=== PATIENT | male | born 1995 | race Caucasian/White ===

== ENCOUNTER → 2024-08-17 12:45 | Outpatient (REF) | payer OTHER, SELFPAY | LOC: RAD 12:45 | PROVIDERS: ATTENDING PHYSICIAN Physician Assistant | DX: S89.92XA Unspecified injury of left lower leg, initial encounter (principal) | CPT/HCPCS: 73564 ==

== ENCOUNTER 2024-10-10 12:06 | Emergency (ER) | payer OTHER, SELFPAY ==
[2024-10-10 12:12] VITALS: BP 142/100
--- NOTE | 2024-10-10 13:15 | ED.GENMED ---
History of Present Illness
General
Chief Complaint: Musculo-Skeletal Complaint
Source: patient
Exam Limitations: none
Time Seen by Provider: 10/10/24 12:47
Nursing documentation reviewed up to this point in time: agreed with
History of Present Illness
History of Present Illness:
29-year-old male presenting to the emergency department today with concerns of left knee injury after slip and fall. Ongoing pain to the knee did have some discomfort above the left patella a previous injury. Has been able to ambulate denies
additional injuries denies numbness or weakness.
Past History
Past History
ED Past Medical History: Asthma
ED Past Surgical History: Orthopedic
Patient has exhibited threatening behavior?: No
PSI?: No
Social History
Tobacco: Former smoker
Drug: Marijuana
Personal: Single
Review of Systems
Review of Systems
Allergies reviewed?: Yes
All Other Systems: ROS reviewed and negative except as documented in HPI and ROS
Phy Exam
Physical Exam
Physical Exam:
GENERAL: Alert , in no apparent distress
EYE: pupils equal and reactive
NECK: Supple, no significant adenopathy.
ENT: o/p clr, mmm.
CARDIAC: Regular rate and rhythm .
LUNGS: Clear breath sounds bilaterally, no acute respiratory distress, no wheezes/rales/rhonchi
ABDOMEN: Soft, without focal tenderness, no r/g, no cvat
NEUROLOGICAL: Alert and oriented, no focal neuro deficits
SKIN: Warm and dry, skin intact.
MUSCULOSKELETAL: No joint laxity good range of motion tenderness mainly to the suprapatellar tendon region able to straight leg raise no edema, well perfused.
PSYCH: Normal and appropriate interaction.
Course
Orders/Labs/Results
Orders:
Orders
10/10/24 12:15
CR Knee - Left 4 Or More View* Urgent
Comment:
Reason For Exam: fall, pain
10/10/24 13:10
Minh Wrap Left-Treatment ONCE
Vital Signs
Initial and Last Documented VS:
Initial Vital Signs
Temp Pulse Resp BP Pulse Ox
99.4 F 110 16 142/100 99
10/10/24 12:12 10/10/24 12:12 10/10/24 12:12 10/10/24 12:12 10/10/24 12:12
Last Documented Vital Signs
Temp Pulse Resp BP Pulse Ox
99.4 F 110 16 142/100 99
10/10/24 12:12 10/10/24 12:12 10/10/24 12:12 10/10/24 12:12 10/10/24 12:12
MDM/Problems Addressed
MDM/Problems Addressed:
29-year-old male presenting to the emergency department today with concerns of left-sided knee discomfort after twisting his leg while slipping on ice this morning. Some discomfort with walking. In no distress here no deformity good range of
motion strength no joint laxity patient does have some tenderness to the suprapatellar tendon. Potential sprain to the area. Advised for close follow-up with Ortho. Return precautions given.
*Critical Care Note
Total Time (30-74mins, 75-104mins- exclusive of procedures): Not Applicable
ED Attending Note
-
Portions of this chart may have been created with voice recognition software.� Occasional wrong word or��sound alike� substitutions may have occurred due to the inherent limitations of voice recognition software.
Discharge Plan
Departure
Patient Disposition: Home (Routine Discharge)
Date of Disposition: 10/10/24
Time of Disposition: 13:16
Patient with high blood pressure during this ER visit?: No
Condition: Good
Covid-19: Not Applicable
Discharge Problem:
Sprain of knee
Instructions: Knee Sprain (DC)
Prescriptions:
No Action
fluticasone propionate [Flonase Allergy Relief] 50 mcg/actuation [place],Suspension
1 spray INTRANASAL DAILY
fluticasone propion-salmeterol [Advair Diskus] 250-50 mcg/dose Blister With Device
1 inh INHALATION DAILY
prednisone 10 mg tablet
10 mg PO DAILY 20 Days Qty: 30 0RF
Rx Instructions:
20 mg PO daily x 10 days then 10 mg PO daily x 10 days then d/c, start tomorrow
acetaminophen-codeine [acetaminophen-codeine] 300-30 mg tablet
1 - 2 tab PO Q4HPRN PRN (Reason: Mod-severe pain) Qty: 30 0RF
doxycycline hyclate 100 mg capsule
100 mg PO BID 10 Days Qty: 20 0RF
Referrals:
Jamey Mckeon MD [Active] - Follow up in 5-7 days
Jacqui Burns DO [Family Provider] -
Activity Restrictions/Additional Instructions:
You came to the emergency department today after knee injury. Here your reassuring assessment. Please follow closely with Ortho. Return for any worsening, new or concerning symptoms.
Interventions
Interventions:
*Risk Screen - Suicide Last Done: 10/10/24 12:12
*General Assessment Last Done: 10/10/24 12:12
*Neglect/Abuse Screening Last Done: 10/10/24 12:12
*ED COVID-19 Vaccine History Last Done: 10/10/24 12:12
ED-Musculoskeletal Assessment Last Done: 10/10/24 12:55
Discharge Date and Time
Print Language: OMANI
== END 2024-10-10 13:37 | disposition home or self-care (01) ==
LOC: EMR 12:06
PROVIDERS: EMERGENCY PHYSICIAN Emergency Medicine; FAMILY PHYSICIAN Family Medicine
DX: S83.92XA Sprain of unspecified site of left knee, initial encounter (principal); W00.0XXA Fall on same level due to ice and snow, initial encounter; J45.909 Unspecified asthma, uncomplicated; Z87.891 Personal history of nicotine dependence
CPT/HCPCS: 99283; 73564

== ENCOUNTER 2024-11-02 12:09 | Emergency (ER) | payer OTHER, SELFPAY ==
[2024-11-02 12:11] VITALS: BP 185/89
--- NOTE | 2024-11-02 12:54 | ED.GENMED ---
History of Present Illness
General
Chief Complaint: Heart Rate Problem
Source: patient
Exam Limitations: none
Time Seen by Provider: 11/02/24 12:49
History of Present Illness
History of Present Illness:
See MDM
Past History
Past History
ED Past Medical History: Asthma
ED Past Surgical History: Orthopedic
Patient has exhibited threatening behavior?: No
PSI?: No
Social History
Tobacco: Former smoker
Drug: Marijuana
Personal: Single
Phy Exam
Physical Exam
Physical Exam:
See MDM
Course
Orders/Labs/Results
Orders:
Orders
11/02/24 12:10
EKG [Electrocardiogram (*1)] Urgent
Reason for Study: Palpitations
EKG- Treatment ONCE
11/02/24 12:59
Complete Blood Count/With Diff Urgent
Comprehensive Metabolic Panel Urgent
Magnesium Urgent
TSH Reflex To Free T4 Urgent
Abnormal Lab Results
11/02/24
12:59
MCH 32.2 H pg
(27.0-31.0)
Monocytes % 9.4 H %
(1.7-9.3)
11/02/24 12:59
11/02/24 12:59
Vital Signs
Initial and Last Documented VS:
Initial Vital Signs
Temp Pulse Resp BP Pulse Ox
98.2 F 78 20 185/89 99
11/02/24 12:11 11/02/24 12:11 11/02/24 12:11 11/02/24 12:11 11/02/24 12:11
Last Documented Vital Signs
Temp Pulse Resp BP Pulse Ox
98.2 F 70 20 123/72 98
11/02/24 12:11 11/02/24 14:15 11/02/24 14:15 11/02/24 14:15 11/02/24 14:15
MDM/Problems Addressed
Differential Diagnosis Includes:
HPI and MDM Narrative:
29-year-old male presenting for evaluation of palpitations. Patient states it has been an ongoing issue over the past week. He initially thought it could be caffeine related. He denies any increased caffeine but stopped her caffeine intake over
the past week. Patient states symptoms got really bad yesterday when he was driving. He felt palpitations and then he noted that both of his hands were getting numb. He did go to an outside hospital but ended up leaving without evaluation.
Patient states symptoms started to recur today so he came to the hospital. Patient does acknowledge that symptoms have improved. EKG done in triage is a sinus rhythm. I do long conversation with patient indicating possibility of cardiac
arrhythmia that would require outpatient Holter monitor. Patient does acknowledge. The meantime, will obtain basic blood work which includes electrolytes and thyroid testing
Physical exam
General: Well appearing and non-toxic
HEENT: protecting airway
Neck: appears supple
CV: No evidence of cyanosis. Regular rate and rhythm
Resp: No accessory muscle use
Abd: Non-distended
Extremities: No deformities. No leg edema or unilateral tenderness
Neuro: alert
Psych: Normal affect
Skin: Intact
Problems Addressed including Acute and Chronic Conditions affecting care:
1. Palpitations
Acuity: acute
Prognosis: stable
Details: Patient currently in sinus rhythm. Will obtain basic blood work but otherwise discussed outpatient follow-up for Holter monitor
Updates
Electrolytes and thyroid level within normal limits. Patient has remained in a sinus rhythm on the monitor. Discussed outpatient follow-up with PCP to discuss Holter monitor
Differential Diagnosis (but not limited to): SVT, PVCs, A-fib
Testing considered: Troponin but denies chest pain or shortness of breath
Drug therapy (if applicable): OTC meds, please see d/c instruction regarding Rx drugs
Amount and/or Complexity of Data Reviewed
Clinical info obtained from: Patient
External data reviewed: N/A
Labs I independently reviewed (but not limited to): 12 thyroid levels within normal limits
Radiology: N/A
Pulse Ox: not hypoxic
EKG independently reviewed: Sinus rhythm, normal axis, no STEMI
Radiographer Angiogram: Sinus rhythm
Critical Care: N/A
Risk of Complication:
Social Determinants of health: Good social support
Discussed with other providers: N/A
Escalation of Care includes Admit/Obs: After being observed in the Emergency Department, pt stable for discharge.
Occasional wrong word or 'sound a like' substitutions may have occurred due to the inherent limitations of voice recognition software. Read the chart carefully and recognize, using context, where substitutions have occurred.
*Critical Care Note
Total Time (30-74mins, 75-104mins- exclusive of procedures): Not Applicable
ED Attending Note
-
Portions of this chart may have been created with voice recognition software.� Occasional wrong word or��sound alike� substitutions may have occurred due to the inherent limitations of voice recognition software.
Discharge Plan
Departure
Patient Disposition: Home (Routine Discharge)
Date of Disposition: 11/02/24
Time of Disposition: 14:41
Patient with high blood pressure during this ER visit?: No
Discharge Problem:
Palpitations
Instructions: Palpitations (DC)
Prescriptions:
No Action
fluticasone propionate [Flonase Allergy Relief] 50 mcg/actuation [place],Suspension
1 spray INTRANASAL DAILY
fluticasone propion-salmeterol [Advair Diskus] 250-50 mcg/dose Blister With Device
1 inh INHALATION DAILY
prednisone 10 mg tablet
10 mg PO DAILY 20 Days Qty: 30 0RF
Rx Instructions:
20 mg PO daily x 10 days then 10 mg PO daily x 10 days then d/c, start tomorrow
acetaminophen-codeine [acetaminophen-codeine] 300-30 mg tablet
1 - 2 tab PO Q4HPRN PRN (Reason: Mod-severe pain) Qty: 30 0RF
doxycycline hyclate 100 mg capsule
100 mg PO BID 10 Days Qty: 20 0RF
Referrals:
Masoud Goff MD [Family Provider] -
Activity Restrictions/Additional Instructions:
Please return for any worsening symptoms.
You may return at any time if you have further concerns.
Please follow up with your doctor at the first available appointment, preferably this week. Please discuss getting a Holter monitor to further evaluate your symptoms.
Thank you for choosing [facility].
Interventions
Interventions:
*General Assessment Last Done: 11/02/24 12:11
ED- Cardiac Assessment Last Done: 11/02/24 12:57
ED- Pulmonary Assessment Last Done: 11/02/24 12:57
Discharge Date and Time
Print Language: [place]ET[place]ESE
[2024-11-02 12:57] VITALS: BMI 20.4
[2024-11-02 13:08] LABS: % Basophils 1.3 % (0-2); % Eosinophils 0.8 % (0-6); % Immature Granulocytes 0.4 % (0-0.5); % Lymphocytes 23.3 % (20.5-51.1); % Monocytes 9.4 % (1.7-9.3); % Neutrophils 64.8 % (42.2-75.2); Absolute Basophils 0.1 10^3/uL (0-0.2); Absolute Lymphocytes 1.2 10^3/uL (1.2-3.4); Absolute Monocytes 0.5 10^3/uL (0.1-0.6); Absolute Neutrophils 3.5 10^3/uL (1.4-6.5); Hemoglobin 15.6 g/dL (13.0-18.0); Mean Corp Hgb Conc. 34.7 g/dL (33.0-37.0); Mean Corpuscular Hgb 32.2 pg (27.0-31.0); Mean Platelet Volume 9.9 fL (7.4-10.4); Nucleated Red Blood Cells % 0 % (-); Platelet Count 241 10^3/uL (130-400); Red Blood Cell Count 4.84 10^6/uL (4.70-6.10); Red Cell Dist. Width 12.4 % (11.5-14.5); White Blood Cell Count 5.3 10^3/uL (4.8-10.8)
[2024-11-02 13:26] LABS: ALT (SGPT) 33 U/L (0-50); AST (SGOT) 38 U/L (17-59); Albumin 4.9 g/dl (3.5-5.0); Alkaline Phosphatase 60 U/L (38-126); Blood Urea Nitrogen 12 mg/dl (9-20); Calcium 9.9 mg/dl (8.4-10.2); Carbon Dioxide 28 mmol/L (22-30); Chloride 99 mmol/L (98-107); Estimated Creatinine Clearance 120 ml/min; Glucose 89 mg/dl (70-99); Potassium 4.5 mmol/L (3.5-5.1); Sodium 135 mmol/L (135-145); Total Bilirubin 1.2 mg/dl (0.2-1.3); Total Protein 7.6 g/dl (6.3-8.2); eGFR > 60.00
[2024-11-02 14:15] VITALS: BP 123/72
== END 2024-11-02 14:49 | disposition home or self-care (01) ==
LOC: EMR 12:09
PROVIDERS: EMERGENCY PHYSICIAN Student in an Organized Health Care Education/Training Program; FAMILY PHYSICIAN Family Medicine
DX: R00.2 Palpitations (principal); J45.909 Unspecified asthma, uncomplicated; Z87.891 Personal history of nicotine dependence
CPT/HCPCS: 99284; 80053; 83735; 84443; 85025; 93005

== ENCOUNTER → 2024-11-28 15:22 | Outpatient (REF) | payer OTHER, SELFPAY | LOC: RAD 15:22 | PROVIDERS: ATTENDING PHYSICIAN Physician Assistant | DX: R10.30 Lower abdominal pain, unspecified (principal) | CPT/HCPCS: 76700 ==

== ENCOUNTER 2024-12-16 16:24 | Emergency (ER) | payer OTHER, SELFPAY ==
[2024-12-16 16:26] VITALS: BP 168/104
--- NOTE | 2024-12-16 17:15 | ED.GENMED ---
History of Present Illness
General
Chief Complaint: Numbness
Source: patient
Exam Limitations: none
Time Seen by Provider: 12/16/24 17:05
Nursing documentation reviewed up to this point in time: agreed with
History of Present Illness
History of Present Illness:
29-year-old male with a past medical history of asthma presents emergency department today with concerns of genital paresthesias for the past few hours. Patient reports that he was drinking a cup of coffee earlier when he suddenly noticed that he
had numbness and tingling around his testicles as well as the anal area. He also notes some pain in that area as well. Of note, patient notes that this all started multiple weeks ago with low back pain. Patient reports that the low back pain
started to wrap around to the front and now he has pelvic pressure as well. He denies any dysuria, denies any penile discharge, denies any new sexual partners. He denies any fevers or chills. Patient also reports that he has been constipated past
few days he states he has a lot of difficulty having a bowel movement. Patient also notes that today, he also developed numbness in his bilateral thighs. Denies any difficulty walking. He denies any urinary or fecal incontinence. Patient states
that he saw his primary care provider for upper abdominal pain he is having thinks ago but never seen anyone for this low back pain and neurologic complaints.
Past History
Past History
ED Past Medical History: Asthma
ED Past Surgical History: Orthopedic
Patient has exhibited threatening behavior?: No
PSI?: No
Social History
Tobacco: Former smoker
Drug: Marijuana
Personal: Single
Review of Systems
Review of Systems
All Other Systems: ROS reviewed and negative except as documented in HPI and ROS
Phy Exam
Physical Exam
Physical Exam:
General: Patient is well appearing and in no acute distress; non-toxic
Skin: Warm and dry, no rashes or lesions
Head: Normocephalic, atraumatic
Eyes: Sclera non-icteric. EOMs intact.
Cardiac: Regular rate and rhythm, no murmurs
Peripheral Vascular: No lower extremity swelling or edema
Pulm: Normal respiratory effort, no wheezes, rales, rhonchi
Abdomen: Right lower quadrant abdominal tenderness to palpation with guarding, no palpable abdominal masses
Musculoskeletal: No tenderness to palpation of the bilateral lower extremities, no palpable bony deformitues
Neuro: CN II-XII intact, no focal neurologic deficits. 5 of 5 strength bilateral lower extremities, 2+ lower extremity DTRs, normal gait
Psychiatric: Appropriate mood and affect.
Course
Orders/Labs/Results
Orders:
Orders
12/16/24 18:02
MR Lumbar Without Contrast Urgent
Comment:
Reason For Exam: low back pain, genital paresthesias, constipation
Recent pill cam endoscopy?: No
12/16/24 18:03
CT Abd/pelvis W Iv Cont Urgent
Comment:
Reason For Exam: RLQ pain
12/16/24 18:13
Complete Blood Count/With Diff Urgent
Comprehensive Metabolic Panel Urgent
Lipase Urgent
Urinalysis Reflex To Culture Urgent
Date Specimen was Collected: 12/16/24
Time Specimen was Collected: 18:06
Abnormal Lab Results
12/16/24
18:13
MCH 32.9 H pg
(27.0-31.0)
Absolute Lymphs (auto) 1.1 L 10^3/uL
(1.2-3.4)
Lymphocytes % 17.3 L %
(20.5-51.1)
BUN 5 L mg/dl
(9-20)
Urine Ketones 2+ A
(Negative)
12/16/24 18:13
12/16/24 18:13
Vital Signs
Initial and Last Documented VS:
Initial Vital Signs
Temp Pulse Resp BP Pulse Ox
98.8 F 100 20 168/104 100
04/20/25 16:26 12/16/24 16:26 12/16/24 16:26 12/16/24 16:26 12/16/24 16:26
Last Documented Vital Signs
Temp Pulse Resp BP Pulse Ox
98.8 F 100 16 143/91 98
12/16/24 16:26 12/16/24 16:26 12/16/24 18:00 12/16/24 21:00 12/16/24 21:15
MDM/Problems Addressed
Differential Diagnosis Includes:
Differentials include cauda equina syndrome, lumbar disc herniation, urinary tract infection, STD, STI, gastroenteritis, gastritis,
MDM/Problems Addressed:
29-year-old male with a past medical history of asthma presents emergency department today with concerns of genital paresthesias for the past few hours. Patient reports that he was drinking a cup of coffee earlier when he suddenly noticed that he
had numbness and tingling around his testicles as well as the anal area. He also notes some pain in that area as well. Of note, patient notes that this all started multiple weeks ago with low back pain. Concern for cauda equina syndrome. MRI of
the lumbar spine was obtained which does show moderate disc herniation L4-L5 and some minimal herniation of L5-S1 but no evidence of cauda equina syndrome. In light of patient's abdominal tenderness on exam, patient also received an ultrasound
abdomen pelvis which showed no acute inflammatory process within the abdomen and pelvis within normal appendix. Suspect the constellation of patient's symptoms related to lumbar disc herniation. There is no evidence of UTI on urinalysis. Patient
does not currently have testicular pain. However he feels back pain in the paresthesias. Will start on course of prednisone, patient stable for discharge
Chronic conditions affecting care:
asthma
*Pulse Oximetry
Patient hypoxic: no
*Critical Care Note
Total Time (30-74mins, 75-104mins- exclusive of procedures): Not Applicable
Data Reviewed
Review of Other/Old Records Reveals: Records (Reviewed ER physician mentation from 11/02/2024 patient seen for evaluation of palpitations, was discharged with unremarkable work) and Discharge Summary (No discharge summary [employer] to review)
Source: patient and records
Patient Management
Escalation/DeEscalation of care consider admission/obs:
admit not indicated, patient stable for discharge
ED Attending Note
-
Portions of this chart may have been created with voice recognition software.� Occasional wrong word or��sound alike� substitutions may have occurred due to the inherent limitations of voice recognition software.
Discharge Plan
Departure
Patient Disposition: Home (Routine Discharge)
Date of Disposition: 12/16/24
Time of Disposition: 21:13
Patient with high blood pressure during this ER visit?: Yes
Condition: Good
Discharge Problem:
Acute lumbar radiculopathy
Instructions: Herniated Disc (DC), Radiculopathy of the neck and back (including sciatica), BLOOD PRESSURE
Prescriptions:
New
prednisone 20 mg tablet
40 mg PO DAILY 5 Days Qty: 10 0RF
No Action
fluticasone propionate [Flonase Allergy Relief] 50 mcg/actuation [place],Suspension
1 spray INTRANASAL DAILY
fluticasone propion-salmeterol [Advair Diskus] 250-50 mcg/dose Blister With Device
1 inh INHALATION DAILY
prednisone 10 mg tablet
10 mg PO DAILY 20 Days Qty: 30 0RF
Rx Instructions:
20 mg PO daily x 10 days then 10 mg PO daily x 10 days then d/c, start tomorrow
acetaminophen-codeine [acetaminophen-codeine] 300-30 mg tablet
1 - 2 tab PO Q4HPRN PRN (Reason: Mod-severe pain) Qty: 30 0RF
doxycycline hyclate 100 mg capsule
100 mg PO BID 10 Days Qty: 20 0RF
Referrals:
Jeet Wiley PA [Family Provider] -
Activity Restrictions/Additional Instructions:
Prednisone has been sent to pharmacy. You can take 40 mg daily for 5 days.
Please follow-up with your primary care provider and follow-up with the orthopedist.
PLEASE RETURN EMERGENCY DEPARTMENT SHOULD YOU DEVELOP ACUTE WORSENING OR SYMPTOMS, URINARY OR FECAL INCONTINENCE, FEVERS OR CHILLS, INABILITY AMBULATE, OR ANY OTHER SIGNS OR SYMPTOMS WORRISOME TO YOU.
Interventions
Interventions:
*Risk Screen - Suicide Last Done: 12/16/24 17:47
*General Assessment Last Done: 12/16/24 17:47
*Neglect/Abuse Screening Last Done: 12/16/24 18:18
*ED- Fall Risk Assessment Last Done: 12/16/24 17:47
*Nursing Disposition Last Done: 12/16/24 21:25
ED- Neurological Assessment Last Done: 12/16/24 18:16
Discharge Date and Time
Discharge Date/Time: 12/16/24 21:25
Print Language: JAPANESE
[2024-12-16 18:18] VITALS: BMI 19.9
[2024-12-16 18:20] LABS: % Basophils 0.6 % (0-2); % Eosinophils 0.3 % (0-6); % Immature Granulocytes 0.2 % (0-0.5); % Lymphocytes 17.3 % (20.5-51.1); % Monocytes 6.5 % (1.7-9.3); % Neutrophils 75.1 % (42.2-75.2); Absolute Lymphocytes 1.1 10^3/uL (1.2-3.4); Absolute Monocytes 0.4 10^3/uL (0.1-0.6); Absolute Neutrophils 4.9 10^3/uL (1.4-6.5); Hematocrit 43.9 % (39.0-52.0); Hemoglobin 15.6 g/dL (13.0-18.0); Mean Corp Hgb Conc. 35.5 g/dL (33.0-37.0); Mean Corpuscular Hgb 32.9 pg (27.0-31.0); Mean Corpuscular Volume 92.6 fL (80.0-94.0); Mean Platelet Volume 9.3 fL (7.4-10.4); Nucleated Red Blood Cells % 0 % (-); Platelet Count 214 10^3/uL (130-400); Red Blood Cell Count 4.74 10^6/uL (4.70-6.10); Red Cell Dist. Width 12.4 % (11.5-14.5); White Blood Cell Count 6.6 10^3/uL (4.8-10.8)
[2024-12-16 19:06] LABS: ALT (SGPT) 27 U/L (0-50); AST (SGOT) 31 U/L (17-59); Albumin 4.7 g/dl (3.5-5.0); Alkaline Phosphatase 76 U/L (38-126); Blood Urea Nitrogen 5 mg/dl (9-20); Carbon Dioxide 27 mmol/L (22-30); Chloride 102 mmol/L (98-107); Estimated Creatinine Clearance > 125 ml/min; Glucose 88 mg/dl (70-99); Lipase 154 U/L (23-300); Potassium 4.3 mmol/L (3.5-5.1); Sodium 138 mmol/L (135-145); Total Bilirubin 1.1 mg/dl (0.2-1.3); Total Protein 7.4 g/dl (6.3-8.2); eGFR > 60.00
[2024-12-16 19:11] LABS: Urine Albumin Negative (Neg - Trace); Urine Bilirubin Negative (Negative); Urine Character Clear (Clear); Urine Color Yellow; Urine Glucose Negative (Negative); Urine Ketone 2+ (Negative); Urine Leukocyte Negative (Negative); Urine Nitrite Negative (Negative); Urine Occult Blood Negative (Negative); Urine Urobilinogen Negative (Neg - 1+)
[2024-12-16 20:41] VITALS: BP 136/89
[2024-12-16 21:00] VITALS: BP 143/91
== END 2024-12-16 21:25 | disposition home or self-care (01) ==
LOC: EMR 16:24
PROVIDERS: Physician Assistant; EMERGENCY PHYSICIAN Emergency Medicine; FAMILY PHYSICIAN Physician Assistant
DX: M51.16 Intervertebral disc disorders with radiculopathy, lumbar region (principal); J45.909 Unspecified asthma, uncomplicated; Z87.891 Personal history of nicotine dependence
CPT/HCPCS: 99284; 72148; 74177; 80053; 81003; 83690; 85025; Q9967

== ENCOUNTER 2025-01-08 13:31 | Emergency (ER) | payer OTHER, SELFPAY ==
[2025-01-08 13:41] VITALS: BP 162/91
[2025-01-08 13:59] LABS: % Basophils 0.7 % (0-2); % Eosinophils 0.3 % (0-6); % Immature Granulocytes 0.3 % (0-0.5); % Lymphocytes 17.4 % (20.5-51.1); % Monocytes 8.2 % (1.7-9.3); % Neutrophils 73.1 % (42.2-75.2); Absolute Monocytes 0.5 10^3/uL (0.1-0.6); Absolute Neutrophils 4.4 10^3/uL (1.4-6.5); Hematocrit 43.9 % (39.0-52.0); Hemoglobin 15.1 g/dL (13.0-18.0); Mean Corp Hgb Conc. 34.4 g/dL (33.0-37.0); Mean Corpuscular Hgb 32.7 pg (27.0-31.0); Mean Platelet Volume 9.4 fL (7.4-10.4); Nucleated Red Blood Cells % 0 % (-); Platelet Count 204 10^3/uL (130-400); Red Blood Cell Count 4.62 10^6/uL (4.70-6.10); Red Cell Dist. Width 12.6 % (11.5-14.5)
[2025-01-08 14:14] LABS: ALT (SGPT) 21 U/L (0-50); AST (SGOT) 26 U/L (17-59); Albumin 4.4 g/dl (3.5-5.0); Alkaline Phosphatase 52 U/L (38-126); Blood Urea Nitrogen 12 mg/dl (9-20); Calcium 9.9 mg/dl (8.4-10.2); Carbon Dioxide 30 mmol/L (22-30); Chloride 105 mmol/L (98-107); Glucose 119 mg/dl (70-99); Potassium 4.5 mmol/L (3.5-5.1); Sodium 138 mmol/L (135-145); Total Bilirubin 0.9 mg/dl (0.2-1.3); eGFR > 60.00
--- NOTE | 2025-01-08 17:59 | ED.GENMED ---
History of Present Illness
General
Chief Complaint: Male Genito-Urinary Symptoms
Source: patient
Exam Limitations: none
Time Seen by Provider: 01/08/25 17:36
Nursing documentation reviewed up to this point in time: agreed with
History of Present Illness
History of Present Illness:
Patient is a 29-year-old male presenting to the emergency department with concerns of scrotal pain and dysuria which started today. Patient states that as he was getting in the shower late morning he had some aching in his scrotum. He noticed that
scrotum seem more swollen and red. He then went to the bathroom and reports burning when he peed. He denies any hematuria. He states scrotal pain has seemed to come and go in waves today. He reports mild pain in his lower abdomen.
Patient denies any fevers or vomiting.
Patient states he is not currently sexually active. He was recently tested for STDs in July and was negative.
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 However�he states scrotal redness and swelling are new.
Past History
Past History
ED Past Medical History: Asthma
ED Past Surgical History: Orthopedic
Patient has exhibited threatening behavior?: No
PSI?: No
Social History
Tobacco: Former smoker
Drug: Marijuana
Personal: Single
Review of Systems
Review of Systems
Allergies reviewed?: Yes
All Other Systems: ROS reviewed and negative except as documented in HPI and ROS
Phy Exam
Physical Exam
Physical Exam:
Vitals: Hypertensive, otherwise vital signs stable. Afebrile
General: Patient is well appearing, no acute distress. Nontoxic appearing
Skin: Warm and dry, no rashes or lesions
Head: Normocephalic, atraumatic
Eyes: Sclera nonicteric. EOMs intact. No nystagmus.
Throat: Protecting airway
Neck: Normal ROM, no cervical spine tenderness, no meningismus
Cardiac: Regular rate and rhythm, no murmurs.
Pulm: Normal respiratory effort, no wheezes, rales, rhonchi heard on exam
.
Abdomen: Abdomen soft. Very mild suprapubic tenderness. No rebound tenderness or guarding.
: Mild scrotal erythema and edema with mild diffuse tenderness. No focal tenderness of epididymis or palpable masses. No erythema of the perineal region. No penile discharge.
Extremities: No evidence of cyanosis or edema. Strength 5/5 in upper and lower extremities
Neuro: AAOx3. No focal neurologic deficits. Steady gait. Normal sensation of bilateral upper and lower extremities.
Psychiatric: Normal affect.
Course
Orders/Labs/Results
Orders:
Orders
01/08/25 13:47
Complete Blood Count/With Diff Urgent
Comprehensive Metabolic Panel Urgent
Urinalysis Reflex To Culture Urgent
Date Specimen was Collected: 01/08/25
Time Specimen was Collected: 13:43
Urine Microscopic Reflex Cult Urgent
Chlamydia/GC by PCR Urgent
SUNNY Source: U
Specimen Description:
Date Specimen was Collected: 01/08/25
Time Specimen was Collected: 13:43
Comment: ADD ON
Urine Culture Urgent
SUNNY Source: U
Specimen Description:
Date Specimen was Collected: 01/08/25
Time Specimen was Collected: 13:43
01/08/25 17:58
Scrotum US [US Scrotum] Urgent
Comment:
Reason For Exam: Scrotal pain/swelling
01/08/25 19:00
Ketorolac [Toradol] 15 mg IM NOW STA
01/08/25 20:04
Cephalexin Monohydrate [Keflex] 500 mg PO NOW STA
01/08/25 20:16
Add On- LAB Urgent
Comments:: urine in lab
Tests Added?: chlamydia gc pcr urine
Abnormal Lab Results
01/08/25
13:47
RBC 4.62 L 10^6/uL
(4.70-6.10)
MCV 95.0 H fL
(80.0-94.0)
MCH 32.7 H pg
(27.0-31.0)
Absolute Lymphs (auto) 1.0 L 10^3/uL
(1.2-3.4)
Lymphocytes % 17.4 L %
(20.5-51.1)
Glucose 119 H mg/dl
(70-99)
Urine Ketones 2+ A
(Negative)
Leukocyte Esterase Rfl 1+ A
(Negative)
Urine Bacteria (Reflex) Moderate A
(Negative)
Urine Albumin (Reflex) 1+ A
(Neg - Trace)
01/08/25 13:47
01/08/25 13:47
Vital Signs
Initial and Last Documented VS:
Initial Vital Signs
Pulse Resp Pulse Ox
92 18 99
01/08/25 13:40 01/08/25 13:40 01/08/25 13:40
Last Documented Vital Signs
Temp Pulse Resp BP Pulse Ox
99.1 F 92 18 162/91 99
01/08/25 13:41 01/08/25 13:40 01/08/25 13:40 01/08/25 13:41 01/08/25 13:40
MDM/Problems Addressed
Differential Diagnosis Includes:
Not limited to: UTI, epididymitis, orchitis, GC/chlamydia, cellulitis, testicular torsion, inguinal hernia, etc.
MDM/Problems Addressed:
29-year-old male presenting with somewhat gradual onset scrotal pain and swelling today. He also notes generalized redness of scrotum and mild dysuria. He has chronic lower back herniated disc. Not currently sexually active with no concern for
STDs. Vital stable. Physical exam as above. Basic labs were sent in triage without any clinically significant abnormalities. Will obtain urinalysis and check scrotal ultrasound. Toradol for pain.
Update: Scrotal ultrasound with very small varicocele noted without any other abnormalities. No evidence of testicular torsion. Clinically low suspicion for epidural. Urine with moderate bacteria, otherwise not very suspicious for UTI.
However�will treat for possible mild scrotal cellulitis and cover for possible UTI with Keflex. Recommended urology follow-up outpatient. Referral was given. Will advise close spine follow-up for central herniated disc. No evidence of cauda
equina today. Patient seen with attending physician. Patient comfortable plan is stable for discharge home.
Chronic conditions affecting care:
Central disc herniation of L4/L5
Acute Exacerbation and/or Progression of Chronic Illness:
N/A
*Radiology
Radiology exam reviewed: radiology read reviewed
*Pulse Oximetry
Patient hypoxic: no
*EKG
Interpreted by ED Provider?: NA
*[place] Interpretation
Rate: [place]- N/A
*Critical Care Note
Total Time (30-74mins, 75-104mins- exclusive of procedures): Not Applicable
Data Reviewed
Review of Other/Old Records Reveals: Radiology Studies (MRI of lumbar spine from 12/16/2024 which shows posterior central disc protrusion at level of L4/L5 CT abdomen/pelvis with IV contrast from 12/16/2024 without acute abnormalities-no evidence of
kidney stones at that time; )
Source: previous radiology exam and previous hospital records
Patient Management
Discussion with other providers: Other (Case discussed with attending physician)
ED Attending Note
-
Portions of this chart may have been created with voice recognition software.� Occasional wrong word or��sound alike� substitutions may have occurred due to the inherent limitations of voice recognition software.
Discharge Plan
Departure
Patient Disposition: Home (Routine Discharge)
Date of Disposition: 01/08/25
Time of Disposition: 20:06
Patient with high blood pressure during this ER visit?: Yes
Condition: Good
Covid-19: Not Applicable
Discharge Problem:
Cellulitis, scrotum
Instructions: Urinary tract infection in adults - ED discharge instructions, BLOOD PRESSURE
Prescriptions:
New
cephalexin 500 mg capsule
500 mg PO BID 5 Days Qty: 10 0RF
prednisone 20 mg tablet
40 mg PO DAILY 5 Days Qty: 10 0RF
No Action
fluticasone propionate [Flonase Allergy Relief] 50 mcg/actuation [place],Suspension
1 spray INTRANASAL DAILY
fluticasone propion-salmeterol [Advair Diskus] 250-50 mcg/dose Blister With Device
1 inh INHALATION DAILY
prednisone 10 mg tablet
10 mg PO DAILY 20 Days Qty: 30 0RF
Rx Instructions:
20 mg PO daily x 10 days then 10 mg PO daily x 10 days then d/c, start tomorrow
acetaminophen-codeine [acetaminophen-codeine] 300-30 mg tablet
1 - 2 tab PO Q4HPRN PRN (Reason: Mod-severe pain) Qty: 30 0RF
doxycycline hyclate 100 mg capsule
100 mg PO BID 10 Days Qty: 20 0RF
prednisone 20 mg tablet
40 mg PO DAILY 5 Days Qty: 10 0RF
Referrals:
Jeet Wiley PA [Family Provider] -
Ruslan Sarmiento MD [Active] - Call in 1-3 days for appt
Activity Restrictions/Additional Instructions:
RETURN TO THE EMERGENCY DEPARTMENT WITH ANY HIGH FEVER, SEVERE ABDOMINAL PAIN, SEVERE TESTICULAR PAIN, SIGNIFICANT WORSENING OF REDNESS IN GROIN, NUMBNESS/TINGLING IN GROIN, URINARY/BOWEL INCONTINENCE, OR ANY OTHER CONCERNS
- As discussed�your lab work and urinalysis in the emergency department showed no acute abnormalities. We will send your urine for culture we will contact you if this is positive. Scrotal ultrasound showed no acute abnormalities.
- A prescription for Keflex has been sent to your pharmacy. You should take this twice a day for 5 days to treat a possible cellulitis or infection of your scrotal skin. This will also treat a developing UTI.
- You should contact the MRI department tomorrow to obtain a disc of your most recent MRI. It is very important you follow-up with a spine surgeon for further evaluation/management as you have a known disc herniation at your L4/L5 level.
- Follow-up with primary care, urology, spine surgery for further evaluation/management
Monitor your symptoms closely and return to the emergency department with any acute worsening/new symptoms or any other concerns
Interventions
Interventions:
*Risk Screen - Suicide Last Done: 01/08/25 13:43
*Neglect/Abuse Screening Last Done: 01/08/25 13:43
*Nursing Disposition Last Done: 01/08/25 20:33
ED-Male Genitourinary Assessment Last Done: 01/08/25 19:26
Discharge Date and Time
Discharge Date/Time: 01/08/25 20:33
Print Language: YI
[2025-01-08] MEDS: TORADOL 15 MG IM (19:23)
[2025-01-08 19:27] LABS: Urine Albumin 1+ (Neg - Trace); Urine Bilirubin Negative (Negative); Urine Character Clear (Clear); Urine Color Yellow; Urine Glucose Negative (Negative); Urine Ketone 2+ (Negative); Urine Leukocyte 1+ (Negative); Urine Nitrite Negative (Negative); Urine Occult Blood Negative (Negative); Urine Urobilinogen Negative (Neg - 1+)
[2025-01-08 19:39] LABS: Urine Amorphous Seen; Urine Bacteria Moderate (Negative); Urine Red Blood Cell 0-2 /HPF (0-2); Urine White Cell 0-2 /HPF (0-5)
[2025-01-08] MEDS: KEFLEX 500 MG PO (20:16)
== END 2025-01-08 20:33 | disposition home or self-care (01) ==
LOC: EMR 13:31
PROVIDERS: Emergency Medicine; EMERGENCY PHYSICIAN Emergency Medicine; FAMILY PHYSICIAN Physician Assistant
DX: N49.2 Inflammatory disorders of scrotum (principal); I86.1 Scrotal varices; R03.0 Elevated blood-pressure reading, without diagnosis of hypertension; Z87.891 Personal history of nicotine dependence
CPT/HCPCS: 99285; 96372; 76870; 80053; 81003; 81015; 85025; 87086; 87491; 87591; 93976

== ENCOUNTER 2025-01-28 14:11 | Emergency (ER) | payer OTHER, SELFPAY ==
[2025-01-28 14:17] VITALS: BP 175/106
--- NOTE | 2025-01-28 16:53 | ED.GENMED ---
History of Present Illness
General
Chief Complaint: Back Pain
Source: patient
Exam Limitations: none
Time Seen by Provider: 01/28/25 16:23
Nursing documentation reviewed up to this point in time: agreed with
History of Present Illness
History of Present Illness:
Patient to ED with complaint of back and neck pain with radiation to his arms and legs. States he was seen in ED on 12/16 with complaint of pain to low back pain with radiation to pelvis, genital parasthesia. MRI was completed , L4-5 dis herniation
(moderate), L5-S1 mild herniation. NO cauda equina. He was placed on course of prednisone and discharged home with PCP follow up. He was seen here again on 01/08 [facility] if scrotal pain and dysuria. Dx with scrotal cellulitis, placed on
antibiotics and discharged home. He states he had an appointment last week with pain management and was given an epidural. States he felt 'ok' for the first 2 days but then the pain iwth lower extremity radiation returned. He now notes this pain
as well as pain in his neck with radiation to upper extremities. Denies fever/chills. No difficulty ambulating. No bowel or bladder issues. Brought self back to ED for eval.
Past History
Past History
ED Past Medical History: Asthma
ED Past Surgical History: Orthopedic
Patient has exhibited threatening behavior?: No
PSI?: No
Social History
Tobacco: Former smoker
Drug: Marijuana
Personal: Single
Review of Systems
Review of Systems
Allergies reviewed?: Yes
All Other Systems: ROS reviewed and negative except as documented in HPI and ROS
Constitutional: Reports no symptoms
EENT: Reports no symptoms
Respiratory: Reports no symptoms
Cardiac: Reports no symptoms
ABD/GI: Reports no symptoms
: Reports no symptoms
Musculoskeletal: Reports neck pain and back pain (low back pain)
Skin: Reports no symptoms
Neurological: Reports other (reports tingling to arms and legs)
Psychiatric: Reports no symptoms
Phy Exam
General Physical Exam
General Presentation: well appearing and no apparent distress
General age: appears stated age
General Skin: warm and dry
General Habitus: normal
General Mental: alert
Neurological Exam
Neurological Exam: alert, oriented x3, CN II-XII intact, no motor deficits, no sensory deficits, speech normal and normal gait
Reflexes
Reflexes: +3: Left patellar and +3: Right patellar
Musculoskeletal Exam
Musculoskeletal Exam: full ROM and neuro vasc intact
Skin Exam
Skin Exam: normal color, warm/dry and no rash
Psychiatric Exam
Psychiatric Exam: normal mood/affect
Course
Orders/Labs/Results
Orders:
Orders
01/28/25 16:45
Dexamethasone Sod Phosphate [Decadron] 10 mg IV NOW STA
01/28/25 17:41
CRP [C-Reactive Protein] Urgent
Complete Blood Count/With Diff Urgent
Comprehensive Metabolic Panel Urgent
Sed Rate [Erythrocyte Sed Rate] Urgent
Abnormal Lab Results
01/28/25
17:41
MCV 94.5 H fL
(80.0-94.0)
MCH 32.7 H pg
(27.0-31.0)
Lymphocytes % 17.8 L %
(20.5-51.1)
Total Bilirubin 1.7 H mg/dl
(0.2-1.3)
Albumin 5.1 H g/dl
(3.5-5.0)
01/28/25 17:41
01/28/25 17:41
Vital Signs
Initial and Last Documented VS:
Initial Vital Signs
Temp Pulse Resp BP Pulse Ox
98.4 F 88 16 175/106 100
01/28/25 14:17 01/28/25 14:17 01/28/25 14:17 01/28/25 14:17 01/28/25 14:17
Last Documented Vital Signs
Temp Pulse Resp BP Pulse Ox
98.4 F 70 16 133/95 99
01/28/25 14:17 01/28/25 19:21 01/28/25 14:17 01/28/25 19:21 01/28/25 19:21
*Critical Care Note
Total Time (30-74mins, 75-104mins- exclusive of procedures): Not Applicable
Update Note
Update Note:
Patient to ED with report of worsening back pain despite epidural 1 week ago. Now notes pain in upper back and arms. No weakness in extremities. No loss of sensation. No motor issues. VSS, afebrile. Labs reviewed, exam completed, no concerning
findings. He has an appointment scheduled in AM with pain management, will follow up as scheduled. Given instructions on s/s to return to ED and he is agreeable to pplan.
ED Attending Note
-
Portions of this chart may have been created with voice recognition software.� Occasional wrong word or��sound alike� substitutions may have occurred due to the inherent limitations of voice recognition software.
Discharge Plan
Departure
Patient Disposition: Home (Routine Discharge)
Date of Disposition: 01/28/25
Time of Disposition: 19:16
Patient with high blood pressure during this ER visit?: No
Condition: Good
Covid-19: Not Applicable
Discharge Problem:
Back pain, Radiculopathy
Instructions: Low Back Pain (DC), Upper Back Pain (DC), Radiculopathy (DC)
Prescriptions:
New
prednisone 10 mg Tablet
See Rx Instructions .ROUTE .COMPLEX Qty: 30 0RF
Rx Instructions:
Take By Mouth:
40 mg daily x3 days, 30 mg daily x3 days,
20 mg daily x3 days, 10 mg daily x3 days.
No Action
fluticasone propionate [Flonase Allergy Relief] 50 mcg/actuation [place],Suspension
1 spray INTRANASAL DAILY
fluticasone propion-salmeterol [Advair Diskus] 250-50 mcg/dose Blister With Device
1 inh INHALATION DAILY
prednisone 10 mg tablet
10 mg PO DAILY 20 Days Qty: 30 0RF
Rx Instructions:
20 mg PO daily x 10 days then 10 mg PO daily x 10 days then d/c, start tomorrow
acetaminophen-codeine [acetaminophen-codeine] 300-30 mg tablet
1 - 2 tab PO Q4HPRN PRN (Reason: Mod-severe pain) Qty: 30 0RF
doxycycline hyclate 100 mg capsule
100 mg PO BID 10 Days Qty: 20 0RF
prednisone 20 mg tablet
40 mg PO DAILY 5 Days Qty: 10 0RF
cephalexin 500 mg capsule
500 mg PO BID 5 Days Qty: 10 0RF
prednisone 20 mg tablet
40 mg PO DAILY 5 Days Qty: 10 0RF
Referrals:
Shira Hudson MD [Active, Neurosurgery]
Activity Restrictions/Additional Instructions:
Follow up with pain management tomorrow as scheduled.
Interventions
Interventions:
*Risk Screen - Suicide Last Done: 01/28/25 14:19
*General Assessment Last Done: 01/28/25 19:42
*Neglect/Abuse Screening Last Done: 01/28/25 14:19
*ED- Fall Risk Assessment Last Done: 01/28/25 19:42
*ED COVID-19 Vaccine History Last Done: 01/28/25 19:42
*Nursing Disposition Last Done: 01/28/25 19:44
ED-Musculoskeletal Assessment Last Done: 01/28/25 19:42
Discharge Date and Time
Discharge Date/Time: 01/28/25 19:46
Print Language: FRENCH
[2025-01-28] MEDS: DECADRON 10 MG IV (17:43)
[2025-01-28 17:54] LABS: % Basophils 0.8 % (0-2); % Eosinophils 0.1 % (0-6); % Immature Granulocytes 0.3 % (0-0.5); % Lymphocytes 17.8 % (20.5-51.1); % Monocytes 8.1 % (1.7-9.3); % Neutrophils 72.9 % (42.2-75.2); Absolute Basophils 0.1 10^3/uL (0-0.2); Absolute Lymphocytes 1.3 10^3/uL (1.2-3.4); Absolute Monocytes 0.6 10^3/uL (0.1-0.6); Absolute Neutrophils 5.2 10^3/uL (1.4-6.5); Hematocrit 46.5 % (39.0-52.0); Hemoglobin 16.1 g/dL (13.0-18.0); Mean Corp Hgb Conc. 34.6 g/dL (33.0-37.0); Mean Corpuscular Hgb 32.7 pg (27.0-31.0); Mean Corpuscular Volume 94.5 fL (80.0-94.0); Mean Platelet Volume 9.6 fL (7.4-10.4); Nucleated Red Blood Cells % 0 % (-); Platelet Count 228 10^3/uL (130-400); Red Blood Cell Count 4.92 10^6/uL (4.70-6.10); Red Cell Dist. Width 12.6 % (11.5-14.5); White Blood Cell Count 7.1 10^3/uL (4.8-10.8)
[2025-01-28 18:04] LABS: Erythrocyte Sed Rate 3 mm/hour (0-20)
[2025-01-28 18:11] LABS: ALT (SGPT) 27 U/L (0-50); AST (SGOT) 32 U/L (17-59); Albumin 5.1 g/dl (3.5-5.0); Alkaline Phosphatase 60 U/L (38-126); Blood Urea Nitrogen 10 mg/dl (9-20); Calcium 9.9 mg/dl (8.4-10.2); Carbon Dioxide 26 mmol/L (22-30); Chloride 105 mmol/L (98-107); Glucose 98 mg/dl (70-99); Potassium 4.4 mmol/L (3.5-5.1); Sodium 137 mmol/L (135-145); Total Bilirubin 1.7 mg/dl (0.2-1.3); Total Protein 7.7 g/dl (6.3-8.2); eGFR > 60.00
[2025-01-28 18:15] LABS: C-Reactive Protein < 5.00 mg/L (0.0-10.00)
[2025-01-28 19:21] VITALS: BP 133/95
== END 2025-01-28 19:46 | disposition home or self-care (01) ==
LOC: EMR 14:11
PROVIDERS: Nurse Practitioner; EMERGENCY PHYSICIAN Emergency Medicine; FAMILY PHYSICIAN Physician Assistant
DX: M54.2 Cervicalgia (principal); M54.16 Radiculopathy, lumbar region; M51.26 Other intervertebral disc displacement, lumbar region; J45.909 Unspecified asthma, uncomplicated; Z87.891 Personal history of nicotine dependence; Z88.8 Allergy status to other drugs, medicaments and biological substances
CPT/HCPCS: 99284; 96374; 80053; 85025; 85652; 86140

== ENCOUNTER 2025-07-07 17:02 | Emergency (ER) | payer SELFPAY ==
[2025-07-07 17:05] VITALS: BP 132/91
[2025-07-07 17:25] LABS: Hematocrit 48.0 % (39.0-52.0); Hemoglobin 16.9 g/dL (13.0-18.0); Mean Corp Hgb Conc. 35.2 g/dL (33.0-37.0); Mean Corpuscular Volume 91.1 fL (80.0-94.0); Nucleated Red Blood Cells % 0 % (-); Platelet Count 301 10^3/uL (130-400); Red Cell Dist. Width 12.3 % (11.5-14.5)
[2025-07-07 17:45] LABS: COVID-19 Antigen Negative (Negative)
[2025-07-07 17:52] LABS: ALT (SGPT) 48 U/L (0-50); AST (SGOT) 46 U/L (17-59); Albumin 5.1 g/dl (3.5-5.0); Alkaline Phosphatase 67 U/L (38-126); Blood Urea Nitrogen 8 mg/dl (9-20); Calcium 10.2 mg/dl (8.4-10.2); Carbon Dioxide 29 mmol/L (22-30); Chloride 104 mmol/L (98-107); Glucose 86 mg/dl (70-99); Potassium 4.2 mmol/L (3.5-5.1); Sodium 144 mmol/L (135-145); Total Protein 8.0 g/dl (6.3-8.2); eGFR > 60.00
[2025-07-07 18:04] LABS: Troponin I < 0.012 ng/ml
--- NOTE | 2025-07-07 18:37 | ED.GENMED ---
History of Present Illness
General
Chief Complaint: Chest Pain
Source: patient
Exam Limitations: none
Time Seen by Provider: 07/07/25 18:32
History of Present Illness
History of Present Illness:
30yoM with a history of asthma presenting for evaluation of chest pain. Patient reports tightness in his chest over the past week. He went drinking with his friends last night. When he woke up this morning, he noticed pain radiating down his
right arm and that it was painful to take a deep breath. He has been experiencing a cough. Symptoms do not feel like an asthma flare. He denies any fevers, leg swelling, calf pain, paresthesias. He reports tobacco use that he started up again a
few months ago. He had a flight to [place] a few weeks ago.
Past History
Past History
ED Past Medical History: Asthma
ED Past Surgical History: Orthopedic
Patient has exhibited threatening behavior?: No
PSI?: No
Social History
Tobacco: Former smoker
Drug: Marijuana
Personal: Single
Phy Exam
General Physical Exam
General Presentation: well appearing and no apparent distress
General age: appears stated age
General Skin: warm and dry
General Habitus: normal
General Mental: alert
ENT Exam
ENT Exam: normocephalic
Cardiovascular Exam
Cardiovascular Exam: regular rate/rhythm, no edema, no murmur and normal peripheral pulses (2+ radial pulses bilaterally)
Pulmonary Exam
Pulmonary Exam: lungs clear, no respiratory distress, no rales, chest non tender, no crackles, no rhonchi and no wheezing
Neurological Exam
Neurological Exam: alert
Clem Coma Scale
Eye Opening: Spontaneous
Verbal Response: Oriented
Motor Response: Obeys Commands
GCS Total Score: 15
Skin Exam
Skin Exam: normal color and warm/dry
Psychiatric Exam
Psychiatric Exam: normal mood/affect
Scores
Heart Score for Chest Pain Patients
STEMI patient?: No
History: Slightly or Non-Suspicious
ECG: Normal
Age: </= 45 years
Risk Factors: No Risk Factors
Troponin: </= Normal Limit
Heart Score for Chest Pain Patients: 0
Heart Score Risk: 2.5% MACE over next 6 weeks
Course
Orders/Labs/Results
Orders:
Orders
07/07/25 17:04
Electrocardiogram (*1) Urgent
Reason for Study: Chest Pain
EKG- Treatment ONCE
07/07/25 17:14
COVID-19 Antigen Urgent
Source: Nasal Swab
Influenza A+B Rapid Molecular Urgent
SUNNY Source: Nasal Swab
Specimen Description:
07/07/25 17:18
CMP [Comprehensive Metabolic Panel] Urgent
Complete Blood Count/With Diff Urgent
Troponin I Urgent
07/07/25 18:58
Cardiac Monitoring- Treatment ONCE
07/07/25 19:30
D-Dimer Urgent
07/07/25 20:19
CR Chest - 2 Views Urgent
Comment:
Reason For Exam: CP
07/07/25 21:20
Famotidine [Pepcid] 20 mg PO NOW STA
Mag Hydrox/Al Hydrox/Simeth [Maalox] 30 ml PO NOW STA
07/07/25 21:21
Viscous Lidocaine 2% [Xylocaine Viscous Cup] 15 ml PO ONCE ONE
Abnormal Lab Results
07/07/25
17:18
MCH 32.1 H pg
(27.0-31.0)
BUN 8 L mg/dl
(9-20)
Albumin 5.1 H g/dl
(3.5-5.0)
07/07/25 17:18
07/07/25 17:18
Vital Signs
Initial and Last Documented VS:
Initial Vital Signs
Temp Pulse Resp BP Pulse Ox
99.0 F 102 18 132/91 95
07/07/25 17:05 07/07/25 17:05 07/07/25 17:05 07/07/25 17:05 07/07/25 17:05
Last Documented Vital Signs
Temp Pulse Resp BP Pulse Ox
99.0 F 85 19 125/82 95
07/07/25 17:05 07/07/25 20:45 07/07/25 20:45 07/07/25 20:01 07/07/25 18:37
MDM/Problems Addressed
Differential Diagnosis Includes:
30yoM here with chest tightness that is pleuritic x 1 week. Hx of asthma but this feels different. VSS. He is well appearing in no distress and exam is reassuring. Differential diagnosis includes but is not limited to: musculoskeletal, pleurisy,
pneumonia, pneumothorax, bronchitis, PE, less likely ACS
Initial ED plan: Workup initiated in triage. EKG shows NSR without ischemic changes and troponin undetectable. COVID/flu testing negative. Will check D-dimer and CXR vs. CT depending on D-dimer results.
*Pulse Oximetry
SaO2: 95
Oxygen Mode of Delivery: Room air
Patient hypoxic: no
*EKG
Interpreted by ED Provider?: Yes
EKG Intrepretation Date: 07/07/25
Heart Rate: 93
Rate: normal
Rhythm: sinus
[place]: normal axis
Interval: normal interval
QRS Pattern: normal QRS
Ischemia: no ischemia
*Critical Care Note
Total Time (30-74mins, 75-104mins- exclusive of procedures): Not Applicable
Update Note
Update Note:
D-dimer normal making PE very unlikely. CXR obtained which is normal. Unclear etiology of symptoms. Patient believes symptoms may be from acid reflux. Will trial GI cocktail. Patient advised to f/u with PCP and ED return precautions reviewed. He was
discharged in stable condition.
ED Attending Note
-
Portions of this chart may have been created with voice recognition software.� Occasional wrong word or��sound alike� substitutions may have occurred due to the inherent limitations of voice recognition software.
Discharge Plan
Departure
Patient Disposition: Home (Routine Discharge)
Date of Disposition: 07/07/25
Time of Disposition: 21:21
Patient with high blood pressure during this ER visit?: No
Discharge Problem:
Chest pain
Instructions: Chest Pain PCP Follow Up
Prescriptions:
No Action
fluticasone propionate [Flonase Allergy Relief] 50 mcg/actuation [place],Suspension
1 spray INTRANASAL DAILY
fluticasone propion-salmeterol [Advair Diskus] 250-50 mcg/dose Blister With Device
1 inh INHALATION DAILY
prednisone 10 mg tablet
10 mg PO DAILY 20 Days Qty: 30 0RF
Rx Instructions:
20 mg PO daily x 10 days then 10 mg PO daily x 10 days then d/c, start tomorrow
acetaminophen-codeine [acetaminophen-codeine] 300-30 mg tablet
1 - 2 tab PO Q4HPRN PRN (Reason: Mod-severe pain) Qty: 30 0RF
doxycycline hyclate 100 mg capsule
100 mg PO BID 10 Days Qty: 20 0RF
prednisone 20 mg tablet
40 mg PO DAILY 5 Days Qty: 10 0RF
cephalexin 500 mg capsule
500 mg PO BID 5 Days Qty: 10 0RF
prednisone 20 mg tablet
40 mg PO DAILY 5 Days Qty: 10 0RF
prednisone 10 mg Tablet
See Rx Instructions .ROUTE .COMPLEX Qty: 30 0RF
Rx Instructions:
Take By Mouth:
40 mg daily x3 days, 30 mg daily x3 days,
20 mg daily x3 days, 10 mg daily x3 days.
Referrals:
[facility] [Provider Group]
Masoud Jones DO [Family Provider, Internal Medicine]
Activity Restrictions/Additional Instructions:
Please call tomorrow to schedule a follow-up appointment with a family doctor. Return to the ER with any new or worsening symptoms.
Interventions
Interventions:
*Risk Screen - Suicide Last Done: 07/07/25 17:05
*General Assessment Last Done: 07/07/25 19:35
*Neglect/Abuse Screening Last Done: 07/07/25 17:05
*ED- Fall Risk Assessment Last Done: 07/07/25 19:35
*ED COVID-19 Vaccine History Last Done: 07/07/25 19:35
*ED Influenza Vaccine History Last Done: 07/07/25 19:35
*Nursing Disposition Last Done: 07/07/25 22:24
ED- Cardiac Assessment Last Done: 07/07/25 18:34
Discharge Date and Time
Discharge Date/Time: 07/07/25 22:24
Print Language: TAMAZIGHT
[2025-07-07 18:40] VITALS: BMI 20.7
--- NOTE | 2025-07-07 19:30 | EDRN ---
Report recieved, introduced myself to patient, aware about blood draw and plan once results are back
[2025-07-07 19:34] VITALS: BP 139/85
[2025-07-07 20:01] VITALS: BP 125/82
[2025-07-07 20:15] LABS: D-Dimer < 0.27 ug/mlFEU (0.00-0.50)
--- NOTE | 2025-07-07 20:23 | EDRN ---
Patient updated on labs and plan for xray
[2025-07-07] MEDS: PEPCID 20 MG PO (21:42)
[2025-07-07] MEDS: XYLOCAINE VISCOUS CUP 15 ML PO (21:42)
[2025-07-07] MEDS: MAALOX 30 ML PO (21:42)
== END 2025-07-07 22:24 | disposition home or self-care (01) ==
LOC: EMR 17:02
PROVIDERS: Physician Assistant; EMERGENCY PHYSICIAN Emergency Medicine; FAMILY PHYSICIAN Internal Medicine
DX: R07.89 Other chest pain (principal); J45.909 Unspecified asthma, uncomplicated; Z87.891 Personal history of nicotine dependence; Z11.52 Encounter for screening for COVID-19
CPT/HCPCS: 99285; 71046; 80053; 84484; 85025; 85379; 87502; 87811; 93005